=== PATIENT | female | born 1955 | race Caucasian/White ===

== ENCOUNTER 2021-11-09 08:49 | Day surgery (SDC) | payer MEDICARE, OTHER ==
[~2021-11-09 08:49] MED LIST: Lactated Ringers 1,000 ML IV SCH; Midazolam 1 MG/ML 2 ML SDV ONE; Propofol 200 MG/20 ML SDV ONE; Sodium Chloride 0.9% 10 ML Syringe FLUSH PRN
[2021-11-09 09:50] LABS: HEMOGLOBIN A1C 6.1 % (4.3-5.7)
[2021-11-09] MEDS ORDERED: Midazolam 1 MG/ML 2 ML SDV ONE (09:54)
[2021-11-09] MEDS ORDERED: Ondansetron 4 MG/2 ML SDV ONE (09:54)
[2021-11-09] MEDS ORDERED: Propofol 200 MG/20 ML SDV ONE (09:54)
[2021-11-09 10:01] LABS: ANION GAP 11.4 meq/L (7-15); CHLORIDE,CL 107 mmol/L (98-107); SODIUM,NA 140 mmol/L (136-145)
== END 2021-11-09 11:00 | disposition home or self-care (01) ==
LOC: LL.SDS 08:49
PROVIDERS: ATTEND Surgery
DX: Z12.11 Encounter for screening for malignant neoplasm of colon (principal); D12.3 Benign neoplasm of transverse colon; K57.30 Diverticulosis of large intestine without perforation or abscess without bleeding; E11.22 Type 2 diabetes mellitus with diabetic chronic kidney disease; N18.31 Chronic kidney disease, stage 3a; M85.88 Other specified disorders of bone density and structure, other site; K58.0 Irritable bowel syndrome with diarrhea; E55.9 Vitamin D deficiency, unspecified
CPT/HCPCS: 00812; 36415; 80053; 81001; 83036; 88305; J2250; J2405; J2704; J7120